=== PATIENT | female | born 2000 | race Caucasian/White ===

== ENCOUNTER 2020-05-30 13:22 | Emergency (ER) | payer MEDICAID ==
[~2020-05-30] VITALS: Ht 157.5 cm; Wt 81.6 kg
--- NOTE | 2020-05-30 13:40 | NUR ---
DR RILEY IN TO ASSESS
[2020-05-30] MEDS ORDERED: HYDROcodone/ACETAMIN 7.5-325 MG TAB PO ONE (13:45)
[2020-05-30] MEDS ORDERED: IBUPROFEN 800 MG TABLET PO ONE (13:45)
--- NOTE | 2020-05-30 14:00 | NUR ---
[facility] EMT FROM [facility] AFTER HAVE NEAR [place]. SHE WAS OUTSIDE IN [place] WITH POOR PO INTAKE. UPON ARRIVAL, ALERT, CALM, RESP UNLABORED, DENIES CP/SOB C/O BURCH
--- NOTE | 2020-05-30 14:15 | NUR ---
RECEIVED AND IN ROOM, PT CALM, ALERT, NAD. CLEAR MENTATION AND SPEECH
[2020-05-30 14:19] LABS: BASOPHILS % (AUTO) 0.5 % (0.0-2.0); EOSINOPHILS # (AUTO) 0.1 K/uL (0.0-0.4); EOSINOPHILS % (AUTO) 1.4 % (0.0-4.0); HEMOGLOBIN 13.3 g/dL (12.0-16.0); LYMPHOCYTES # (AUTO) 1.7 K/uL (1.0-5.5); LYMPHOCYTES % (AUTO) 20.9 % (20.5-51.5); MEAN CORPUSCULAR HEMOGLOBIN 29 pg (27-31); MEAN CORPUSCULAR HGB CONC 33 % (32-36); MEAN CORPUSCULAR VOLUME 88 fL (79.0-98.0); MONOCYTES # (AUTO) 0.6 K/uL (0.0-1.0); MONOCYTES % (AUTO) 7.3 % (1.7-9.3); NEUTROPHILS # (AUTO) 5.7 K/uL (1.8-7.7); NEUTROPHILS % (AUTO) 69.9 % (40.0-70.0); PLATELET COUNT (AUTO) 282 K/uL (130-430); RED BLOOD CELL COUNT(AUTO) 4.66 MIL/uL (4.2-6.2); RED CELL DISTRIBUTION WIDTH 13.3 % (9.0-15.0); WHITE BLOOD COUNT (AUTO) 8.2 K/uL (4.5-11.0)
[2020-05-30 14:29] VITALS: BP_SYST 110
[2020-05-30 14:30] LABS: CALCIUM 9.3 mg/dL (8.4-11.0); CREATININE 0.78 mg/dL (0.55-1.30); POTASSIUM 4.6 mmol/L (3.5-5.1)
[2020-05-30 14:34] LABS: ALBUMIN 3.6 g/dL (3.4-4.8); PROTHROMBIN TIME 10.2 SECS (9.5-12.5); TOTAL BILIRUBIN 0.3 mg/dL (0.0-1.0)
[2020-05-30 14:59] LABS: C-REACTIVE PROTEIN QUANT 0.7 mg/dL (0-0.5)
[2020-05-30 15:05] LABS: ERYTHROCYTE SEDIMENTATION RATE 5 MM/HR (0-20)
[2020-05-30 15:45] VITALS: BP_SYST 110
--- NOTE | 2020-05-30 15:45 | NUR ---
Patient given written and verbal discharge instructions and verbalizes understanding. ER MD discussed with patient the results and treatment provided. Patient in stable condition. Rx of NORCO / IBU given. Patient educated on pain management and to follow up with PMD. Pain Scale . Opportunity for questions provided and answered. Medication side effect fact sheet provided.
== END 2020-05-30 15:45 | disposition home or self-care (01) ==
LOC: SED 13:22
DX: R51 Headache (principal)
CPT/HCPCS: 36415; 70450-TC; 80053; 81025; 85025; 85610-TC; 85651-TC; 85730-TC; 86140; 99284